=== PATIENT | female | born 1995 | race Caucasian/White ===

== ENCOUNTER 2017-10-23 16:14 | Outpatient (CLI) | payer OTHER ==
--- NOTE | 2017-10-23 17:57 | RAD ---
AP VIEW SPINE INCLUDING THE CERVICAL AND THORACIC AND LUMBAR SPINE 10/23/17 HISTORY: Idiopathic scoliosis, thoracolumbar region. FINDINGS: There is right convexed rotoscoliosis of the thoracolumbar spine centered at the T12-L1 level. The de gree of curvature measures approximately 15 degrees. No vertebral anomaly is seen. Based on AP imagin g, the vertebral body heights do appear to be within normal limits. IMPRESSION: Right convex scoliosis thoracolumbar spine centered at the T12-L1 level with degree of curvature jaquan uring approximately 15 degrees. POS: POONAM
== END 2017-10-23 16:15 | disposition home or self-care (01) ==
LOC: RAD 16:14
PROVIDERS: ATTEND Physician Assistant
DX: M41.25 Other idiopathic scoliosis, thoracolumbar region (principal)
CPT/HCPCS: 72081